=== PATIENT | female | born 1940 | race Caucasian/White ===

== ENCOUNTER 2018-10-31 06:48 | Day surgery (SDC) | payer MEDICARE, SELFPAY ==
[2018-10-31 07:05] VITALS: BP 161/97; PULSE 88; RESP 16; TEMP 36.7; O2SAT 97
[2018-10-31 07:11] VITALS: BP 161/97; PULSE 88; RESP 16; TEMP 36.7; O2SAT 97
[2018-10-31] MEDS: Lactated Ringers 1,000 ML 80 ML IV (07:20)
--- NOTE | 2018-10-31 09:16 | W.COLOREPORT ---
Date of service: 10/31/18 Time of Service: 08:54 Colonoscopy Report Date of procedure: 10/31/18 Pre-op diagnosis general: Hx of sigmoid colon Cancer, s/p sigmoid colectomy Post-op diagnosis procedure note: same Procedure: Colonoscopy Surgeon: Kay Cates Anesthesia proc note operative: MAC Estimated blood loss (mL): 0 Pathology: none sent Complications: None Disposition: same day Indications: Mrs. Adkins is a pleasant 77-year-old female who was seen in the office for a colonoscopy. She was diagnosed with colon cancer in 2007 and had a sigmoid colectomy. Her last colonoscopy was in 2014 and was normal. Risks, complications and benefits were reviewed with the patient. Questions were entertained and answered to her satisfaction and she wished to proceed. No guarantees were given or implied. Prep: Miralax/Dulcolax Procedure Start Time: 08:54 Procedure End Time: 09:11 Retraction Time: 9 Findings: Normal colon Open anastamosis Diverticulosis around the anastamosis Procedure Description: After informed consent was obtained the patient was taken to the procedure room and placed in a left decubitous position. Monitors were applied and a time out was done. The patients name, date of , procedure, allergies to medications and metal in their body was reviewed. The patient was then sedated. Once sedated and comfortable a rectal exam was done. External exam was normal. Internal exam revealed a normal sphincter tone and no palpable masses. The scope was then introduced and retro-flexed. No internal hemorrhoids were identified. The scope was then advanced to the cecum without difficulty. The anastamosis was open. There were some diverticula around the anastamosis. The TI and appendiceal orifice were identified. The prep was good. The scope was then slowly retracted over 9 minutes back into the rectum. The scope was removed and the patient was woken up and taken back to Same day surgery in stable condition. The patient tolerated the procedure well and there were no immediate complications. Follow up: The patient should follow up in 3 years unless they develop changes in bowel habits or other new gastrointestinal complaints.
--- NOTE | 2018-10-31 09:22 | PDOC.DSDIS_ITS ---
Discharge Plan Disposition Patient Disposition: HOME Condition: Good Discharge Details Reason For Visit: SCREENING Attending Provider: Kay Cates Primary Care Provider: Valerie Fong V Home Meds and New Rx's Prescriptions: Continue calcium carbonate [Calcium 600] 600 MG tablet 600 mg PO DAILY RF: 0 cyanocobalamin (vitamin B-12) [Vitamin B-12] 500 MCG tablet 500 mcg PO DAILY RF: 0 ascorbate calcium 500 MG tablet 500 mg PO DAILY RF: 0 upliyixf-ipy-KR-lycopen-lutein [Centrum Silver] 1 EACH tablet 1 ea PO DAILY RF: 0 Discontinued bisacodyl [Dulcolax (bisacodyl)] 5 mg tablet,delayed release (DR/EC) 5 mg PO ONCE Qty: 4 RF: 0 polyethylene glycol 3350 17 gram/dose powder 255 g PO ONCE Qty: 255 RF: 0 Discharge Instructions Instructions: Colonoscopy (DC) Additional Instructions: Findings: Follow up: Please call if you develop: fevers >101.5 Nausea or Vomiting Abdominal pain that is not transient DAY SURGERY UNIT POST COLONOSCOPY INSTRUCTIONS 1. Because there will be medication in your system for the next 24 hours, you may feel a little sleepy. Your coordination will be affected. Therefore: a. Do not drive or operate dangerous equipment for 24 hours. b. Do not drink alcohol beverages for 24 hours (not even beer). c. Plan to go home and rest for the day. 2. Generally there are no restrictions on your activity after a day or so has gone by, but you may feel a bit fatigued for a few days. 3 After you arrive home you may have a light meal and return to a normal diet as you can tolerate it without feeling sick to your stomach. 4. After surgery, you may feel pain or discomfort. This should be only transient , but if it persists please contact your doctor. 5. If there are any questions regarding the findings of your procedure, please feel free to contact your doctor. 6. If you are unable to contact your doctor with a problem, contact the hospital at [phone]. 7. Continue all your regular medications unless directed otherwise. I understand the above instructions and have no questions. Signature of Patient or Responsible Adult Escort Date/Time Name of Responsible Adult Escort Signature of Nurse Date/Time Activity:: Activity as Tolerated Diet:: As Tolerated DS: Diagnosis Discharge Diagnosis (1) History of colon cancer: Status: Chronic (2) S/P colonoscopy: Status: Acute
[2018-10-31 09:45] VITALS: BP 118/73; PULSE 65; RESP 16; TEMP 37.3; O2SAT 96
== END 2018-10-31 10:13 | disposition home or self-care (01) ==
PROVIDERS: PCP Family Medicine; Visit Provider Surgery
PROC: 0DJD8ZZ Inspection of Lower Intestinal Tract, Via Natural or Artificial Opening Endoscopic (ICD-10-PCS; CPT 45378; principal; 2018-10-31 08:30)
DX: Z12.11 Encounter for screening for malignant neoplasm of colon (principal); Z85.038 Personal history of other malignant neoplasm of large intestine; Z90.49 Acquired absence of other specified parts of digestive tract; K57.30 Diverticulosis of large intestine without perforation or abscess without bleeding
CPT/HCPCS: G0105

== ENCOUNTER 2020-07-10 15:09 | Outpatient (REF) | payer MEDICARE, SELFPAY ==
[2020-07-10 19:13] LABS: HCT 40.4 % (36.0-46.0); HGB 13.7 g/dL (11.2-15.7); MCH 31.2 pg (27.0-33.0); MCHC 33.9 % (32.0-36.0); MPV 10.7 fL (8.0-11.0); Platelet Count 339 10^3/uL (130-400); RBC 4.39 10^6/uL (3.93-5.22); RDW 12.1 % (11.7-14.6); RDW-SD 41.1 fL; WBC 7.54 10^3/uL (4.4-10.8)
[2020-07-10 20:14] LABS: ALT 23 U/L (14-59); AST 18 U/L (15-37); Albumin 4.2 g/dL (3.4-5.0); Alkaline Phosphatase 82 U/L (46-116); Anion Gap 10.6 mmol/L (3-11); BUN 9 mg/dL (7-18); Bilirubin, Total 0.8 mg/dL (0.2-1.0); CO2 25.4 mmol/L (21.0-32.0); CREATININE 0.79 mg/dL (0.55-1.02); Calcium 9.9 mg/dL (8.5-10.1); Chloride 98 mmol/L (98-107); Glucose 116 mg/dL (74-106); Sodium 134 mmol/L (136-145); TSH (W/Ref FT4) 1.13 uIU/mL (0.36-3.74); Total Protein 7.7 g/dL (6.4-8.2)
[2020-07-14 08:30] LABS: CEA 0.7 ng/mL (See Note)
== END 2020-07-10 15:29 ==
LOC: NCHCN 15:09
PROVIDERS: PCP Family Medicine; Visit Provider Family Medicine
DX: C18.9 Malignant neoplasm of colon, unspecified (principal); R63.4 Abnormal weight loss; R03.0 Elevated blood-pressure reading, without diagnosis of hypertension
CPT/HCPCS: 80053; 85027; 82378; 84443

== ENCOUNTER 2024-12-26 16:51 | Outpatient (REF) | payer MEDICARE, SELFPAY ==
--- NOTE | 2024-12-26 11:00 | ORMUBX_PTH ---
PATIENT: Bhavana Adkins LOC: [facility] U#:[id number] AGE/SX: 83/F ROOM: RE12/26/[address]: Jany Mcgovern : 1940 BED: DIS: 12/26/2024 SPEC #: [id number] RECD: 12/26/24 17:48 STATUS: KEVIN REQ #: [id number] ALFONSO: 12/26/24 11:[address]: Jany Mcgovern DEPT: Surgical Specimen RECD BY: Suki Avitia ENTERED: 12/26/24 17:50 SP TYPE: ORMUBX OTHR DR: Valerie Fong V Tissues: 1 - MUCOSA, NOS Procedures: GROSS AND MICRO LEVEL 4 Comments: [id number]
== END 2024-12-26 16:52 | disposition home or self-care (01) ==
LOC: LBN 16:51
PROVIDERS: PCP Family Medicine; Visit Provider Registered Nurse Maternal Newborn
DX: K13.70 Unspecified lesions of oral mucosa (principal)
CPT/HCPCS: 88305

== ENCOUNTER 2025-01-15 01:41 | Outpatient (CLI) | payer MEDICARE, SELFPAY ==
--- NOTE | 2025-01-15 06:30 | DI.CT_ITS ---
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 TECHNIQUE: Imaging Protocol: Axial computed tomography images with coronal and sagittal reformatted images were created and reviewed CONTRAST MATERIAL: Intravenous: Omnipaque 350 Contrast volume:100 ml contrast COMPARISON: No exams were available for comparison FINDINGS: Parotids: Normal. Submandibular glands: Normal. Thyroid gland: Normal. Lymph nodes: No enlarged lymph nodes. Carotids arteries: No significant stenosis or dissection. Minimal calcification at the common caroti d bulbs. Vertebral arteries: No significant stenosis or dissection. Soft tissues: The floor the mouth is partially obscured by dental work. No mass is visible.. The t onsils and adenoids are unremarkable. The epiglottis and vocal cords are within normal limits. Lungs: Images through both lung apices are unremarkable. Bones: Degenerative changes of the cervical spine. There are prominent endplate osteophytes projecti ng anteriorly at C4-5 through C6-7. Visualized portions of the brain and orbits: Unremarkable. Sinuses and mastoids: Clear. IMPRESSION: No oral mass is visible however area is obscured by artifact from dental work. No evidence of adenop athy. RADIATION DOSE DELIVERED: 261.44mGy.cm Total DLP DATA REPOSITORY: All CT scans at this facility are submitted to the National Radiology Data Registry (NRDR) Dose Index Registry (DIR) with the [employer] ([employer]). RADIATION OPTIMIZATION: All CT scans at this facility use at least one of these dose optimization te chniques: automated exposure control; mA and/or kV adjustment per patient size (includes targeted exa ms where dose is matched to clinical indication); or iterative reconstruction.
[2025-01-15 09:01] LABS: CREATININE 0.7 mg/dL (0.55-1.02)
[2025-01-15] MEDS: Omnipaque 350 MG/ML 100 ML BTL IJ (09:16)
== END 2025-01-15 02:01 ==
PROVIDERS: PCP Family Medicine; Visit Provider Registered Nurse Maternal Newborn
DX: K13.70 Unspecified lesions of oral mucosa (principal); C06.9 Malignant neoplasm of mouth, unspecified
CPT/HCPCS: 70491; 82565; J3490

== ENCOUNTER 2025-04-23 15:57 | Outpatient (REF) | payer MEDICARE, SELFPAY ==
[2025-04-23 15:58] LABS: CREATININE 0.6 mg/dL (0.55-1.02); Estimated GFR 89.56 (mL/min/1.73m2)
== END 2025-04-23 15:58 | disposition home or self-care (01) ==
LOC: LBN 15:57
PROVIDERS: PCP Family Medicine; Visit Provider Student in an Organized Health Care Education/Training Program
DX: C06.9 Malignant neoplasm of mouth, unspecified (principal)
CPT/HCPCS: 82565

== ENCOUNTER 2025-07-04 01:41 | Outpatient (CLI) | payer MEDICARE, SELFPAY ==
--- NOTE | 2025-07-04 07:50 | DI.RAD_ITS ---
Exam(s) XR HIP LT COMPLETE AP PELVIS EXAM: XR HIP LT COMPLETE AP PELVIS CLINICAL HISTORY: PAIN LEFT HIP M25.552. TECHNIQUE: 2D digital imaging was performed. Two views. COMPARISON: No exams were available for comparison FINDINGS: BONES: No acute fracture is present. No bony destructive lesion is seen. JOINTS: No dislocation present. The SI joints and pubic symphysis are intact. There is moderate narrowing of the hip joint spaces. There is bilateral spurring at the acetabula and margins of the femoral heads. There is also spurring at the pubic symphysis. The minimal degenerative changes of the SI joints. SOFT TISSUE: Normal. 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 DATA REPOSITORY: RADIATION DOSE DELIVERED:
== END 2025-07-04 02:01 ==
LOC: DI 01:41
PROVIDERS: PCP Family Medicine; Visit Provider Family Medicine
DX: M16.0 Bilateral primary osteoarthritis of hip (principal)
CPT/HCPCS: 73502